=== PATIENT | male | born 1960 | race Asian ===

== ENCOUNTER 2018-11-30 22:51 | Emergency (ER) | payer MEDICAID ==
[~2018-11-30] VITALS: Ht 170.2 cm; Wt 106.6 kg
[2018-11-30 22:55] VITALS: BP_SYST 128
--- NOTE | 2018-11-30 23:20 | NUR ---
CALL PT NAME IN THE WR,NO ANSWER.
--- NOTE | 2018-11-30 23:25 | NUR ---
CALL PT NAME IN THE WR,NO ANSWER.
--- NOTE | 2018-11-30 23:30 | NUR ---
CALL PT NAME IN THE WR.NO ANSWER.
== END 2018-11-30 23:30 | disposition left against medical advice (07) ==
LOC: SED 22:51
DX: R06.02 Shortness of breath (principal); Z53.21 Procedure and treatment not carried out due to patient leaving prior to being seen by health care provider